=== PATIENT | male | born 1945 | race African-American/Black ===

== ENCOUNTER 2016-11-02 10:43 | Inpatient (IN) | payer MEDICARE, OTHER, MEDICAID ==
[~2016-11-02] VITALS: Ht 180.3 cm; Wt 79.0 kg
[2016-11-02] VITALS (15 sets, daily range): BP systolic 101–156; BP diastolic 38–86
[~2016-11-02 10:43] MED LIST: INSULIN
[2016-11-02] MEDS ORDERED: SODIUM CHLORIDE 0.9% 1,000 ML IV ONE ×2 (11:00→12:15)
[2016-11-02 11:35] LABS: HEMATOCRIT. 43.4 % (42.0-52.0); HEMOGLOBIN. 14.4 g/dL (14.0-18.0); MEAN CORPUSCULAR HEMOGLOBIN 28.1 pg (28.0-32.0); MEAN CORPUSCULAR HGB CONC 33.1 g/dL (31.0-37.0); MEAN CORPUSCULAR VOLUME 84.8 fL (80.0-94.0); MEAN PLATELET VOLUME 10.2 fl (7.4-10.4); PLATELET 216 x1000/uL (130-400); RED BLOOD CELL COUNT 5.12 mill/uL (4.7-6.1); RED CELL DISTRIBUTION WIDTH 15.7 % (11.6-14.6); WHITE BLOOD COUNT 15.7 x1000/uL (4.5-11.0)
[2016-11-02 11:38] LABS: DIFFERENTIAL COMMENT 1
[2016-11-02 11:39] LABS: INDEX HEMOLYSI 2 (1-3); INDEX ICTERIC 1 (1-4); INDEX LIPEMIC 1 (1-3)
[2016-11-02 11:41] LABS: INR 1.3; PROTHROMBIN TIME 13.4 sec
[2016-11-02 11:43] LABS: ALBUMIN 2.7 g/dL (3.4-5.0); ANION GAP 30; CARBON DIOXIDE 15 mEq/L (21-32); CHLORIDE 99 mEq/L (98-107)
[2016-11-02 11:49] LABS: ALANINE AMINOTRANSFERASE 20 IU/L (13-61); eGFR 6 mL/min (>60)
[2016-11-02 12:00] LABS: UREA NITROGEN BLOOD 175 mg/dL (7-21)
[2016-11-02 12:01] LABS: CALCIUM 9.2 mg/dL (8.5-10.1); PLATELET ESTIMATE NORMAL
[2016-11-02 12:08] LABS: ANISOCYTOSIS 1+
[2016-11-02] MEDS ORDERED: SODIUM POLYSTYRENE SULFONATE 15 G/60 ML BOT PO ONE (12:15)
[2016-11-02] MEDS ORDERED: INSULIN REGULAR (HUMULIN R) 300UNITS/3ML IV ONE (12:15)
[2016-11-02] MEDS ORDERED: CALCIUM GLUCONATE 1,000 MG in DEXTROSE 5% WATER 50 ML IV ONE (13:00)
[2016-11-02] MEDS ORDERED: CALCIUM GLUCONATE 1,000 MG in SODIUM CHLORIDE 0.9% 50 ML IV ONE (13:16)
[2016-11-02 13:54] LABS: CLARITY URINE CLEAR (CLEAR); COLOR URINE YELLOW (YELLOW); GLUCOSE URINE 3+ (NEGATIVE); KETONES URINE TRACE (NEGATIVE); LEUKOCYTE ESTERASE URINE NEGATIVE (NEGATIVE); NITRITE URINE NEGATIVE (NEGATIVE); OCCULT BLOOD URINE NEGATIVE (NEGATIVE); PROTEIN URINE 2+ (NEGATIVE); UROBILINOGEN URINE 0.2 E.U./dL (0.2-1.0)
[2016-11-02 14:17] LABS: BACTERIA URINE TRACE; WBC URINE 0-2 /hpf (0-2)
[2016-11-02 14:18] LABS: HYALINE CASTS URINE 0-5 /lpf; RBC URINE NONE SEEN /hpf (0-2); SQUAMOUS EPITHELIAL CELL URINE NONE SEEN /lpf (RARE/1+)
[2016-11-02] MEDS ORDERED: SODIUM BICARBONATE 8.4% 1 MEQ/ML 50ML SYR IV NR (14:45)
[2016-11-02 15:13] LABS: BG BASE EXCESS -13.4 mmol/L (-2.0-2.0); BG CARBOXYHEMOGLOBIN 0.4 % (0.5-1.5); BG DEOXYHEMOGLOBIN 2.5 % (0.0-5.0); BG FRACTION INSPIRED OXYGEN 21; BG HCO3 ACT 12.1 mmol/L (22.0-26.0); BG METHEMOGLOBIN 0.1 % (0.0-1.5); BG OXYGEN SATURATION 97.5 % (92.0-98.5); BG PCO2 27.1 mmHg (35.0-45.0); BG PH 7.266 (7.350-7.450); BG PO2 117.4 mmHg (75.0-100.0); BG SAMPLE SITE LEFT RADIAL; BG TOTAL HEMOGLOBIN 12.3 g/dL (12.0-18.0); BG VENT MODE ROOM AIR
[2016-11-02] MEDS ORDERED: DEXTROSE 50% WATER 50ML SYRINGE IV PRN ×2 (16:15)
[2016-11-02] MEDS ORDERED: SODIUM CHLORIDE 0.9% 1,000 ML IV SCH (16:15)
[2016-11-02] MEDS: CITRIC ACID/SODIUM CITRATE SOLN 30ML UDC PO SCH ×2 (16:18→17:13)
[2016-11-02] MEDS: BLOOD SUGAR DIAGNOSTIC STRIP TEST SCH ×7 (17:13→23:45)
[2016-11-02] MEDS: INSULIN REGULAR (DRIP) 100 UNITS in SODIUM CHLORIDE 0.9% 99 ML IV SCH (17:16)
[2016-11-02] MEDS ORDERED: DIPHENHYDRAMINE 50MG/ML VIAL IV PRN (17:30)
[2016-11-02] MEDS: SODIUM CHLORIDE 0.45% 1,000 ML IV SCH ×2 (18:30→22:30)
[2016-11-02] MEDS ORDERED: PNEUMOCOCCAL 23-VAL P-SAC VAC 0.5 ML IM ONE (19:15)
[2016-11-02] MEDS ORDERED: INFLUENZA VIRUS VACCINE 0.5ML SYR IM ONE (19:15)
[2016-11-02 20:48] LABS: CLARITY URINE CLEAR (CLEAR); COLOR URINE YELLOW (YELLOW); GLUCOSE URINE 2+ (NEGATIVE); KETONES URINE NEGATIVE (NEGATIVE); LEUKOCYTE ESTERASE URINE TRACE (NEGATIVE); NITRITE URINE NEGATIVE (NEGATIVE); OCCULT BLOOD URINE 1+ (NEGATIVE); PROTEIN URINE TRACE (NEGATIVE); SPECIFIC GRAVITY URINE 1.015 (1.005-1.030); UROBILINOGEN URINE 0.2 E.U./dL (0.2-1.0)
[2016-11-02 21:12] LABS: CALCIUM 8.9 mg/dL (8.5-10.1)
[2016-11-02 21:17] LABS: *AMPHETAMINES SCREEN URINE NEGATIVE (NEGATIVE); *BARBITURATES SCREEN URINE NEGATIVE (NEGATIVE); *BENZODIAZEPINES SCREEN URINE NEGATIVE (NEGATIVE); *COCAINE SCREEN URINE PRESUMTIVE POSITIVE (NEGATIVE); CANNABINOID URINE SCREEN NEGATIVE (NEGATIVE); ECSTASY MDMA SCREEN URINE NEGATIVE (NEGATIVE); METHADONE URINE SCREEN NEGATIVE (NEGATIVE); OPIATES URINE SCREEN NEGATIVE (NEGATIVE); PHENCYCLIDINE URINE SCREEN NEGATIVE (NEGATIVE)
[2016-11-02 21:25] LABS: BACTERIA URINE TRACE; RBC URINE 0-2 /hpf (0-2); SQUAMOUS EPITHELIAL CELL URINE NONE SEEN /lpf (RARE/1+)
[2016-11-02 21:38] LABS: LACTIC ACID 6.5 mmol/L (0.4-2.0)
[2016-11-02 21:41] LABS: HEPATITIS B SURFACE AB < 3.1 mIU/mL
[2016-11-02 21:52] LABS: HEPATITIS B SURFACE ANTIGEN NEGATIVE
[2016-11-02 22:36] LABS: HEPATITIS C VIR.AB > 11.00 INDEXVAL (0.00-0.80)
[2016-11-03] VITALS (30 sets, daily range): BP systolic 107–161; BP diastolic 45–103
[2016-11-03] MEDS: INSULIN REGULAR (DRIP) 100 UNITS in SODIUM CHLORIDE 0.9% 99 ML IV SCH (00:45)
[2016-11-03] MEDS: DEXT 5%/0.2% NACL 1,000 ML IV SCH ×3 (00:45→13:25)
[2016-11-03] MEDS: BLOOD SUGAR DIAGNOSTIC STRIP TEST SCH ×10 (01:00→21:52)
[2016-11-03 03:27] LABS: HEMATOCRIT. 34.4 % (42.0-52.0); HEMOGLOBIN. 11.8 g/dL (14.0-18.0); MEAN CORPUSCULAR HEMOGLOBIN 27.8 pg (28.0-32.0); MEAN CORPUSCULAR HGB CONC 34.4 g/dL (31.0-37.0); MEAN CORPUSCULAR VOLUME 80.7 fL (80.0-94.0); MEAN PLATELET VOLUME 9.5 fl (7.4-10.4); RED BLOOD CELL COUNT 4.26 mill/uL (4.7-6.1); RED CELL DISTRIBUTION WIDTH 15.5 % (11.6-14.6); WHITE BLOOD COUNT 16.4 x1000/uL (4.5-11.0)
[2016-11-03] MEDS: SODIUM CHLORIDE 0.45% 1,000 ML IV SCH (03:30)
[2016-11-03 03:35] LABS: DIFFERENTIAL COMMENT 1
[2016-11-03 04:12] LABS: ALANINE AMINOTRANSFERASE 19 IU/L (13-61); ALBUMIN 2.1 g/dL (3.4-5.0); ANION GAP 12; CALCIUM 8.3 mg/dL (8.5-10.1); CARBON DIOXIDE 25 mEq/L (21-32); CHLORIDE 121 mEq/L (98-107); INDEX HEMOLYSI 1 (1-3); INDEX ICTERIC 1 (1-4); INDEX LIPEMIC 1 (1-3); MAGNESIUM 2.1 mg/dL (1.8-2.4); PHOSPHORUS 2.8 mg/dL (2.5-4.9); eGFR 17 mL/min (>60)
[2016-11-03 04:18] LABS: UREA NITROGEN BLOOD 129 mg/dL (7-21)
[2016-11-03] MEDS ORDERED: DEXTROSE 50% WATER 50ML SYRINGE IV PRN (05:00)
[2016-11-03] MEDS ORDERED: INSULIN LISPRO 100 UNITS/ML SUBCUT SCH (07:00)
[2016-11-03] MEDS ORDERED: POTASSIUM CHLORIDE INJ 40 MEQ in DEXT 5% WATER 250 ML IV NR (07:00)
[2016-11-03 07:47] LABS: PLATELET ESTIMATE NORMAL
[2016-11-03 07:48] LABS: PLATELET 149 x1000/uL (130-400)
[2016-11-03] MEDS: INSULIN LISPRO 100 UNITS/ML SUBCUT SCH ×4 (09:26→20:31)
[2016-11-03] MEDS: INSULIN DETEMIR UD 100 UNITS/ML SYR SUBCUT SCH ×2 (09:27→22:17)
[2016-11-03 10:36] LABS: CALCIUM 8.6 mg/dL (8.5-10.1); MAGNESIUM 2.1 mg/dL (1.8-2.4)
[2016-11-03] MEDS ORDERED: POTASSIUM PHOS,M-BASIC-D-BASIC 20 MMOL in DEXT 5% WATER 243.3333 ML IV ONE (14:00)
[2016-11-03 16:34] LABS: CALCIUM 8.2 mg/dL (8.5-10.1)
[2016-11-03] MEDS ORDERED: DIPHENOXYLATE/ATROPINE 2.5/0.025MG TABLET PO PRN (19:15)
[2016-11-03] MEDS: QUETIAPINE FUMARATE 25MG TABLET PO SCH ×2 (20:16→21:53)
[2016-11-04] VITALS (12 sets, daily range): BP systolic 98–153; BP diastolic 48–83
[2016-11-04] MEDS: INSULIN LISPRO 100 UNITS/ML SUBCUT SCH ×4 (07:30→21:02)
[2016-11-04] MEDS: BLOOD SUGAR DIAGNOSTIC STRIP TEST SCH ×4 (07:30→20:50)
[2016-11-04 07:36] LABS: HEMATOCRIT. 34.7 % (42.0-52.0); HEMOGLOBIN. 11.7 g/dL (14.0-18.0); MEAN CORPUSCULAR HEMOGLOBIN 27.9 pg (28.0-32.0); MEAN CORPUSCULAR HGB CONC 33.6 g/dL (31.0-37.0); MEAN PLATELET VOLUME 9.4 fl (7.4-10.4); PLATELET 125 x1000/uL (130-400); RED BLOOD CELL COUNT 4.18 mill/uL (4.7-6.1); RED CELL DISTRIBUTION WIDTH 15.7 % (11.6-14.6); WHITE BLOOD COUNT 11.4 x1000/uL (4.5-11.0)
[2016-11-04 07:37] LABS: DIFFERENTIAL COMMENT 1
[2016-11-04 07:53] LABS: ANION GAP 13; CALCIUM 7.9 mg/dL (8.5-10.1); CARBON DIOXIDE 23 mEq/L (21-32); CHLORIDE 121 mEq/L (98-107); INDEX HEMOLYSI 1 (1-3); INDEX ICTERIC 1 (1-4); INDEX LIPEMIC 1 (1-3); MAGNESIUM 1.7 mg/dL (1.8-2.4); PHOSPHORUS 1.9 mg/dL (2.5-4.9); UREA NITROGEN BLOOD 54 mg/dL (7-21); eGFR > 60 mL/min (>60)
[2016-11-04] MEDS ORDERED: Blood Sugar Diagnostic TEST (08:08)
[2016-11-04] MEDS ORDERED: QUET25TA PO (08:08)
[2016-11-04] MEDS ORDERED: LEVVL SUBCUT (08:08)
[2016-11-04] MEDS ORDERED: INSLIS SUBCUT (08:08)
[2016-11-04 08:26] LABS: PLATELET ESTIMATE SLIGHTLY DECREASED
[2016-11-04] MEDS: INSULIN DETEMIR UD 100 UNITS/ML SYR SUBCUT SCH ×2 (10:00→21:05)
[2016-11-04] MEDS ORDERED: MAGNESIUM 2 G PREMIX 50 ML IV NR (10:00)
[2016-11-04] MEDS ORDERED: POTASSIUM PHOS,M-BASIC-D-BASIC 10 MMOL in DEXT 5% WATER 246.6667 ML IV NR (11:00)
[2016-11-04] MEDS: QUETIAPINE FUMARATE 25MG TABLET PO SCH ×2 (11:06→20:51)
[2016-11-04] MEDS: DEXT 5%/0.2% NACL 1,000 ML IV SCH ×2 (11:10→19:44)
[2016-11-05] VITALS (15 sets, daily range): BP systolic 112–167; BP diastolic 54–90
[2016-11-05 07:10] LABS: BASOPHILS % 0.4 % (0.0-2.0); EOSINOPHILS % 2.6 % (0.0-5.0); HEMATOCRIT. 33.8 % (42.0-52.0); HEMOGLOBIN. 11.5 g/dL (14.0-18.0); LYMPHOCYTES % 11.6 % (20.0-50.0); MEAN CORPUSCULAR HEMOGLOBIN 27.9 pg (28.0-32.0); MEAN CORPUSCULAR VOLUME 82.1 fL (80.0-94.0); MEAN PLATELET VOLUME 9.8 fl (7.4-10.4); MONOCYTES % 14.1 % (2.0-8.0); NEUTROPHILS % 71.3 % (40.0-76.0); PLATELET 120 x1000/uL (130-400); RED BLOOD CELL COUNT 4.11 mill/uL (4.7-6.1); RED CELL DISTRIBUTION WIDTH 15.6 % (11.6-14.6); WHITE BLOOD COUNT 14.3 x1000/uL (4.5-11.0)
[2016-11-05] MEDS: BLOOD SUGAR DIAGNOSTIC STRIP TEST SCH ×4 (07:30→21:35)
[2016-11-05] MEDS: INSULIN LISPRO 100 UNITS/ML SUBCUT SCH ×4 (07:30→21:40)
[2016-11-05 07:38] LABS: INDEX HEMOLYSI 1 (1-3)
[2016-11-05 07:42] LABS: ANION GAP 11; CALCIUM 7.9 mg/dL (8.5-10.1); CARBON DIOXIDE 25 mEq/L (21-32); CHLORIDE 115 mEq/L (98-107); INDEX HEMOLYSI 1 (1-3); INDEX ICTERIC 1 (1-4); INDEX LIPEMIC 1 (1-3); MAGNESIUM 1.6 mg/dL (1.8-2.4); PHOSPHORUS 1.7 mg/dL (2.5-4.9); UREA NITROGEN BLOOD 34 mg/dL (7-21); eGFR > 60 mL/min (>60)
[2016-11-05 07:53] LABS: VITAMIN B12 SERUM 1165 pg/mL (211-911)
[2016-11-05] MEDS: QUETIAPINE FUMARATE 25MG TABLET PO SCH ×2 (08:48→21:39)
[2016-11-05] MEDS: DEXT 5%/0.2% NACL 1,000 ML IV SCH (08:49)
[2016-11-05] MEDS ORDERED: MAGNESIUM 2 G PREMIX 50 ML IV NR (10:00)
[2016-11-05 10:17] LABS: PREALBUMIN 7.5 mg/dL (20.0-40.0)
[2016-11-05] MEDS ORDERED: CLONIDINE 0.1MG TABLET PO PRN (10:30)
[2016-11-05] MEDS ORDERED: POTASSIUM PHOS,M-BASIC-D-BASIC 15 MMOL in DEXT 5% WATER 245 ML IV NR (10:30)
[2016-11-05] MEDS ORDERED: POTASSIUM PHOS M BASIC D BASIC IV NR (11:00)
[2016-11-05] MEDS ORDERED: WATER IV NR (11:00)
[2016-11-05] MEDS ORDERED: DEXT 5% IV NR (11:00)
[2016-11-05] MEDS: INSULIN DETEMIR UD 100 UNITS/ML SYR SUBCUT SCH ×2 (12:57→21:40)
[2016-11-05] MEDS ORDERED: LEVVL SUBCUT (15:59)
[2016-11-06] VITALS (13 sets, daily range): BP systolic 109–166; BP diastolic 53–97
[2016-11-06] MEDS: DEXT 5%/0.2% NACL 1,000 ML IV SCH ×2 (02:03→11:00)
[2016-11-06] MEDS: INSULIN LISPRO 100 UNITS/ML SUBCUT SCH ×4 (06:05→23:10)
[2016-11-06] MEDS: BLOOD SUGAR DIAGNOSTIC STRIP TEST SCH ×4 (06:05→21:00)
[2016-11-06 06:48] LABS: BASOPHILS % 0.4 % (0.0-2.0); EOSINOPHILS % 2.5 % (0.0-5.0); HEMATOCRIT. 31.9 % (42.0-52.0); HEMOGLOBIN. 10.9 g/dL (14.0-18.0); LYMPHOCYTES % 12.2 % (20.0-50.0); MEAN CORPUSCULAR HEMOGLOBIN 28.1 pg (28.0-32.0); MEAN CORPUSCULAR HGB CONC 34.1 g/dL (31.0-37.0); MEAN CORPUSCULAR VOLUME 82.5 fL (80.0-94.0); MEAN PLATELET VOLUME 9.7 fl (7.4-10.4); MONOCYTES % 13.4 % (2.0-8.0); NEUTROPHILS % 71.5 % (40.0-76.0); PLATELET 99 x1000/uL (130-400); RED BLOOD CELL COUNT 3.86 mill/uL (4.7-6.1); RED CELL DISTRIBUTION WIDTH 15.5 % (11.6-14.6); WHITE BLOOD COUNT 10.1 x1000/uL (4.5-11.0)
[2016-11-06 07:00] LABS: ANION GAP 11; CALCIUM 7.4 mg/dL (8.5-10.1); CARBON DIOXIDE 27 mEq/L (21-32); CHLORIDE 108 mEq/L (98-107); INDEX HEMOLYSI 2 (1-3); INDEX ICTERIC 1 (1-4); INDEX LIPEMIC 1 (1-3); MAGNESIUM 1.7 mg/dL (1.8-2.4); PHOSPHORUS 1.6 mg/dL (2.5-4.9); UREA NITROGEN BLOOD 22 mg/dL (7-21); eGFR > 60 mL/min (>60)
[2016-11-06] MEDS: QUETIAPINE FUMARATE 25MG TABLET PO SCH ×2 (08:10→23:00)
[2016-11-06] MEDS ORDERED: MAGNESIUM 2 G PREMIX 50 ML IV NR (09:00)
[2016-11-06] MEDS: INSULIN DETEMIR UD 100 UNITS/ML SYR SUBCUT SCH ×2 (09:10→23:10)
[2016-11-06] MEDS ORDERED: POTASSIUM PHOS,M-BASIC-D-BASIC 15 MMOL in DEXT 5% WATER 245 ML IV NR (10:00)
[2016-11-06 13:13] LABS: A/G RATIO 0.6 (0.7-1.7); ALBUMIN 2.6 g/dL (2.9-4.4); ALPHA-1-GLOBULIN 0.5 g/dL (0.0-0.4); BETA GLOBULIN 1.2 g/dL (0.7-1.3); GAMMA GLOBULINS 1.6 g/dL (0.4-1.8); GLOBULIN TOTAL 4.2 g/dL (2.2-3.9); M-SPIKE Not Observed g/dL (Not Observed); TOTAL PROTEIN SERUM 6.8 g/dL (6.0-8.5)
[2016-11-07] VITALS (12 sets, daily range): BP systolic 120–170; BP diastolic 52–77
[2016-11-07] MEDS: INSULIN LISPRO 100 UNITS/ML SUBCUT SCH ×4 (06:23→18:10)
[2016-11-07] MEDS: BLOOD SUGAR DIAGNOSTIC STRIP TEST SCH ×3 (06:24→17:38)
[2016-11-07 08:04] LABS: BASOPHILS % 0.3 % (0.0-2.0); EOSINOPHILS % 3.1 % (0.0-5.0); HEMATOCRIT. 34.7 % (42.0-52.0); HEMOGLOBIN. 11.8 g/dL (14.0-18.0); MEAN CORPUSCULAR HEMOGLOBIN 28.3 pg (28.0-32.0); MEAN CORPUSCULAR VOLUME 83.2 fL (80.0-94.0); MEAN PLATELET VOLUME 9.5 fl (7.4-10.4); MONOCYTES % 13.8 % (2.0-8.0); NEUTROPHILS % 70.8 % (40.0-76.0); PLATELET 105 x1000/uL (130-400); RED BLOOD CELL COUNT 4.17 mill/uL (4.7-6.1); RED CELL DISTRIBUTION WIDTH 15.3 % (11.6-14.6); WHITE BLOOD COUNT 9.8 x1000/uL (4.5-11.0)
[2016-11-07 08:36] LABS: ANION GAP 10; CARBON DIOXIDE 30 mEq/L (21-32); CHLORIDE 104 mEq/L (98-107); INDEX HEMOLYSI 3 (1-3); INDEX ICTERIC 1 (1-4); INDEX LIPEMIC 1 (1-3); MAGNESIUM 1.7 mg/dL (1.8-2.4); PHOSPHORUS 1.9 mg/dL (2.5-4.9); UREA NITROGEN BLOOD 18 mg/dL (7-21); eGFR > 60 mL/min (>60)
[2016-11-07] MEDS: QUETIAPINE FUMARATE 25MG TABLET PO SCH (10:04)
[2016-11-07] MEDS: INSULIN DETEMIR UD 100 UNITS/ML SYR SUBCUT SCH (11:56)
[2016-11-07] MEDS ORDERED: MAGNESIUM 2 G PREMIX 50 ML IV NR (13:00)
[2016-11-07] MEDS ORDERED: SODIUM PHOS,M-BASIC-D-BASIC 30 MM in DEXT 5% WATER 500 ML IV NR (14:00)
[2016-11-07] MEDS ORDERED: ENALAPRIL 2.5MG/2ML VIAL 2ML IV NR (19:40)
[2016-11-10] MEDS ORDERED: INSULIN LISPRO 100 UNITS/ML SUBCUT SCH (07:30)
== END 2016-11-07 20:45 | DRG 682 ==
LOC: ER 10:54 → MICUSO 12:58 → 5EST 11-03 23:50
PROVIDERS: ADMIT Family Medicine; ATTEND Family Medicine
PROC: 05H933Z Insertion of Infusion Device into Right Brachial Vein, Percutaneous Approach (ICD-10-PCS; principal; 2016-11-03)
PROC: B54MZZA Ultrasonography of Right Upper Extremity Veins, Guidance (ICD-10-PCS; 2016-11-03)
DX: N17.0 Acute kidney failure with tubular necrosis (principal); E13.10 Other specified diabetes mellitus with ketoacidosis without coma; E43 Unspecified severe protein-calorie malnutrition; G93.40 Encephalopathy, unspecified; E87.0 Hyperosmolality and hypernatremia; E87.1 Hypo-osmolality and hyponatremia; M62.82 Rhabdomyolysis; N13.8 Other obstructive and reflux uropathy; R64 Cachexia; R18.8 Other ascites; E87.5 Hyperkalemia; L98.499 Non-pressure chronic ulcer of skin of other sites with unspecified severity; K74.60 Unspecified cirrhosis of liver; B19.20 Unspecified viral hepatitis C without hepatic coma; D64.9 Anemia, unspecified; D72.829 Elevated white blood cell count, unspecified; F03.90 Unspecified dementia, unspecified severity, without behavioral disturbance, psychotic disturbance, mood disturbance, and anxiety; F14.10 Cocaine abuse, uncomplicated; K57.90 Diverticulosis of intestine, part unspecified, without perforation or abscess without bleeding; N13.30 Unspecified hydronephrosis; R62.7 Adult failure to thrive; I11.9 Hypertensive heart disease without heart failure; E13.621 Other specified diabetes mellitus with foot ulcer; E13.65 Other specified diabetes mellitus with hyperglycemia; E87.6 Hypokalemia; E13.51 Other specified diabetes mellitus with diabetic peripheral angiopathy without gangrene; Z91.19 Patient's noncompliance with other medical treatment and regimen; Z79.4 Long term (current) use of insulin; Z89.422 Acquired absence of other left toe(s); Z89.421 Acquired absence of other right toe(s); Z68.24 Body mass index [BMI] 24.0-24.9, adult
CPT/HCPCS: 36415; 36569; 36600; 70450; 71010; 74176; 76700; 76937; 80048; 80053; 80305; 81001; 82010; 82270; 82375; 82550; 82607; 82805; 82962; 83605; 83690; 83735; 83935; 84100; 84134; 84155; 84165; 85025; 85610; 86706; 86803; 86850; 86900; 87040; 87086; 87186; 87340; 87493; 93005; 96374; 99285; A6261; C1725; J0610; J1200; J1815; J3475; J3480; J3490; J7030; J7040; J7050; J7060